=== PATIENT | male | born 1980 | race Caucasian/White ===

== ENCOUNTER 2016-12-12 18:03 | Emergency (ER) | payer OTHER ==
[~2016-12-12] VITALS: Ht 182.9 cm; Wt 76.8 kg
[~2016-12-12 18:03] MED LIST: ASPI81TA25 PO
[2016-12-12 18:11] VITALS: TEMP 36.8; Ht 182.9 cm; Wt 76.8 kg
--- NOTE | 2016-12-12 18:55 | EMERGENCY ROOM VISIT NOTE ---
ED Visit Note First contact with patient: 18:22 CHIEF COMPLAINT: Leg swelling and pain HISTORY OF PRESENT ILLNESS: This 36-year-old male patient presents to the emergency department with complaint of bilateral leg pain and swelling. He has developed gradual onset of swelling and discomfort in both legs that comes and goes, but is worse when he spends significant time on his feet. He states his symptoms started several months ago, but have gotten worse in the past week. He does report recent travel to the [place], returning about one week ago. He states that he notices over time that the vein in his leg will start to bulge out and becomes painful to touch. Initially this bulging vein was only a small area, but it has started to travel up the leg over the past few weeks. There has been no injury to the leg, no fever, and no unusual activity which may have strained a muscle recently. There has not been a long period of immobilization or long car or plane ride recently. There is no history of blood clots in the veins of the legs. Patient states that he called to make an appointment to be evaluated, they were able to schedule him an appointment for next week, however they told him he should not wait and should come to the ER to have a study done to check for blood clots. REVIEW OF SYSTEMS: Head: No headache, injury or neck pain. Neurological: No headache, new changes in mental status, vertigo, focal weakness, numbness. Cardiac: No chest pain, diaphoresis, dyspnea on exertion, orthopnea, pedal edema, or palpitations. Respiratory: No cough, change in sputum, wheezes, hemoptysis, shortness of breath, or stridor. Gastrointestinal: No abdominal pain, blood in stools, diarrhea, loss of appetite, nausea, or vomiting. General : No fever or chills, fatigue, loss of appetite, or significant recent weight gain or loss. PMH: The patient is healthy; there is no significant medical or surgical history. SOCIAL HISTORY: Patient lives at home. PHYSICAL EXAM: Vital Signs: Reviewed Nurse's notes. HEART: Regular rate and rhythm without murmurs, ectopy, gallops, or rubs. LUNGS: Clear to auscultation and breath sounds equal, no wheezes, rales, or rhonchi. ABDOMEN: Soft, non- tender, no hepatosplenomegaly, or masses. NEUROLOGICAL: Alert oriented, coherent. PERRL, EOMI, gait normal. EXTREMITIES: No cyanosis, edema, joint tenderness or effusion. Distal sensation and pulses intact and equal bilaterally. There is no significant redness, swelling, or tenderness of the calves. There are prominent varicose veins noted to both legs, most significant on the left leg starting from the lateral ankle and coursing up across the lateral and anterior calf to the medial thigh, soft and mildly tender to palpation. There is a smaller varicose vein noted to the right medial calf that is also tender to palpation. Chelsy's sign is negative bilaterally. The skin of the affected area is not warm to the touch. There is no lymphangitic streaking. IMAGING: BILATERAL LOWER EXTREMITY VENOUS DOPPLER CLINICAL HISTORY: Bilateral leg pain, swelling, varicose veins, eval DVT. COMPARISON STUDY: No previous studies for comparison. TECHNIQUE: Sonography of the deep venous system of the bilateral lower extremities was performed. Compression and augmentation were evaluated. FINDINGS: The bilateral common femoral, superficial femoral and popliteal veins were compressible. Augmentation was normal. Flow was shown within the deep calf vessels. Patent varicosities were noted within the left lower extremity. IMPRESSION: No evidence of deep venous thrombus within the bilateral lower extremities. EMERGENCY DEPARTMENT COURSE: Ultrasound exam of the bilateral legs does not show any evidence of deep venous thrombosis or other abnormality. Patient's physical exam findings consistent with varicose veins. Patient was offered Motrin and ice pack for his leg pain, he declined stating "I am just here to make sure nothing is serious." Patient was informed of results and plan for discharge, and was encouraged to keep his appointment next week for follow up. He was encouraged to use compression hose for comfort. He verbalized understanding. Patient discharged home in stable condition and ambulatory. Problem List Medical Problems: (1) Umbilical hernia Status: Resolved Current/Historical Medications No Active Prescriptions or Reported Meds Allergies Coded Allergies: Iodinated Contrast Media (Verified Adverse Reaction, Mild, VOMITING, 04/16) Vital Signs Date Time Temp Pulse Resp B/P (MAP) Pulse Ox O2 Delivery O2 Flow Rate FiO2 12/12/16 20:35 65 18 134/87 95 12/12/16 18:11 36.8 99 20 138/74 95 Room Air Departure Information Impression Primary Impression: Varicose veins of bilateral lower extremities with pain Dispostion Home / Self-Care Condition GOOD Prescriptions No Active Prescriptions or Reported Meds Referrals Ken Riddle D.O. (PCP) Lon Cortés M.D. Patient Instructions ED Veins Varicose, My [facility] Additional Instructions Your duplex study today was negative for DVT (blood clot in the veins) Stay off of the legs as much as possible and keep them elevated to help reduce swelling and discomfort. Wear compression hose to both legs to help reduce swelling and discomfort of your varicose veins. You may alternate ice and heat to the affected area for comfort. Tylenol or ibuprofen as needed for pain. These are [id number] medications , please use as directed on the package insert. Keep your scheduled appointment next week for follow-up. If you wish to have something done for your varicose veins, you may see a vascular surgeon to further evaluate and discuss your options. Call for an appointment. Please return to the ER for worsening symptoms, including severe worsening pain , if your legs become very red, warm to the touch, or severely painful, or if you develop fever/chills or any other concerns.
--- NOTE | 2016-12-12 19:34 | DIAGNOSTIC IMAGING REPORT ---
BILATERAL LOWER EXTREMITY VENOUS DOPPLER CLINICAL HISTORY: Bilateral leg pain, swelling, varicose veins, eval DVT. COMPARISON STUDY: No previous studies for comparison. TECHNIQUE: Sonography of the deep venous system of the bilateral lower extremities was performed. Compression and augmentation were evaluated. FINDINGS: The bilateral common femoral, superficial femoral and popliteal veins were compressible. Augmentation was normal. Flow was shown within the deep calf vessels. Patent varicosities were noted within the left lower extremity. IMPRESSION: No evidence of deep venous thrombus within the bilateral lower extremities. Electronically signed by: Jesus Nunez M.D. 12/12/2016 7:33 PM Dictated Date/Time: 12/12/2016 7:31 PM
[2016-12-12 20:35] VITALS: BP 134/87; PULSE 65; O2SAT 95
== END 2016-12-12 20:35 | disposition home or self-care (01) ==
LOC: C.EDB 18:09 → C.EDC 20:35
DX: I83.93 Asymptomatic varicose veins of bilateral lower extremities (principal); Z91.041 Radiographic dye allergy status

== ENCOUNTER → 2016-12-28 | Outpatient (CLI) | payer OTHER ==
[2016-12-28 13:11] LABS: HEMATOCRIT 45.8 % (42-52); MEAN CORPUSCULAR HEMOGLOBIN 31.4 pg (25-34); MEAN CORPUSCULAR HGB CONC 34.9 g/dl (32-36); MEAN PLATELET VOLUME 10.8 fL (7.4-10.4); PLATELET COUNT 279 K/uL (130-400); RED BLOOD COUNT 5.09 M/uL (4.7-6.1); WHITE BLOOD COUNT 4.84 K/uL (4.8-10.8)
[2016-12-28 13:27] LABS: ALT/SGPT 37 U/L (12-78); BLOOD UREA NITROGEN 10 mg/dl (7-18); BUN/CREATININE RATIO 11.6 (10-20); CALCIUM 9.3 mg/dl (8.5-10.1); CARBON DIOXIDE 26 mmol/L (21-32); CHLORIDE 107 mmol/L (98-107); CHOLESTEROL 183 mg/dl (0-200); GLUCOSE 93 mg/dl (70-99); POTASSIUM 4.5 mmol/L (3.5-5.1); SODIUM 139 mmol/L (136-145)
[2016-12-28 13:30] LABS: ALB/GLOB RATIO 1.3 (0.9-2); ALKALINE PHOSPHATASE 90 U/L (45-117); AST/SGOT 16 U/L (15-37); CHOLESTEROL/HDL RATIO 4.1; HDL CHOLESTEROL 45 mg/dl; LDL CHOLESTEROL CALCULATED 125 mg/dl; TRIGLYCERIDES 65 mg/dl (0-150); VERY LOW DENSITY LIPOPROT CALC 13 mg/dl
[2016-12-28 15:21] LABS: LYME DISEASE AB IGG NEG (NEG); LYME DISEASE AB IGM NEG (NEG)
== END | disposition home or self-care (01) ==
LOC: C.LABBC 11:32
PROVIDERS: ATTEND Internal Medicine
DX: Z00.00 Encounter for general adult medical examination without abnormal findings (principal); R94.5 Abnormal results of liver function studies; S00.96XA Insect bite (nonvenomous) of unspecified part of head, initial encounter; W57.XXXA Bitten or stung by nonvenomous insect and other nonvenomous arthropods, initial encounter